=== PATIENT | male | born 1980 | race Caucasian/White ===

== ENCOUNTER 2023-01-19 13:14 | Outpatient (CLI) | payer OTHER | END 2023-01-19 13:15 | disposition home or self-care (01) | LOC: MADRAD 13:14 | PROVIDERS: ATTEND Registered Nurse | DX: M47.22 Other spondylosis with radiculopathy, cervical region (principal) | CPT/HCPCS: 72050 ==

== ENCOUNTER 2023-01-24 13:17 | Emergency (ER) | payer OTHER | END 2023-01-24 15:35 | disposition home or self-care (01) | LOC: MADERS 13:17 | DX: S13.4XXA Sprain of ligaments of cervical spine, initial encounter (principal); M25.78 Osteophyte, vertebrae; W20.8XXA Other cause of strike by thrown, projected or falling object, initial encounter | CPT/HCPCS: 72125 ==